=== PATIENT | female | born 1965 | race Caucasian/White ===

== ENCOUNTER 2019-05-08 05:23 | Day surgery (SDC) | payer BC, OTHER ==
[~2019-05-08] VITALS: Ht 154.9 cm; Wt 56.7 kg
--- NOTE | ~2019-05-08 | O ---
[facility] [place] [address] OPERATIVE REPORT Name: DEBORAH DIETZ Room #: 150-4 [facility].#: [id number] Admission: 05/08/19 ������������������ Attend Phys: Isidro Singh MD Discharge: ������������������ Date of : 67 Report #: [id number] THIS REPORT FOR: //name// CC: Isidro Marroquin PREOPERATIVE DIAGNOSIS: Left breast mass, 5 o'clock position. POSTOPERATIVE DIAGNOSIS: Left breast mass, probable fibrocystic condition with fibrous nodule. PROCEDURE PERFORMED: Excisional biopsy, left breast mass. ANESTHESIA: IV sedation, local 0.25% Marcaine. SURGEON: Isidro Singh M.D. COMPLICATIONS: None. ESTIMATED BLOOD LOSS: 2 mL. PROCEDURE NOTE: With the patient under IV sedation, left breast was prepped and draped in sterile fashion. Timeout was performed. A site of the lump was marked. A 0.25% Marcaine was used to anesthetize the skin over the mass. A curvilinear incision about 2.5 cm was made over the mass. After incising through skin and subcutaneous tissue, the fibrous portion of the breast tissue was identified. This was the palpable area. This was dissected free without difficulty. The breast tissue laterally was dissected more into the substance of the breast and the lump was then accomplished. Once the mass was removed, it felt less mass like. I think the breast tissue tend to kind of folded on itself, which made this palpable. There is a thickened area, cephalad and lateral to it, has a similar feeling, and has a less mass-like feeling, but similar. This was not removed. Exam through the cavity does not reveal any other suspicious mass. The palpable mass is definitely removed in its entirety. The cavity was irrigated. Hemostasis obtained with cautery. Subcutaneous tissue was brought together with 4-0 PDS. Skin was closed with 5-0 PDS. Dermabond and Telfa was used for dressing. The patient has allergies to ADHESIVE. None was used. The patient was awakened and taken to recovery room. ��������������������������������������������� ���������������������������������������� By: ��������������������������������������������� 0939 0950 Isidro Singh MD /nt
[~2019-05-08 05:23] MED LIST: ASMANEX HFA13 GM INH; CALCIUM 500 +1 EAC5 PO; CENTRUM SILVER1 EAC4 PO; FISH OIL 1,001000 M2 PO; FOSAMAX 70 MG T70 MG PO
[2019-05-08 09:07] VITALS: BP 98/50
[2019-05-08] MEDS ORDERED: NORCO 5-325 TA1 EAC1 PO (09:28)
--- NOTE | 2019-05-08 09:36 | H ---
[facility] [place] [address] HISTORY AND PHYSICAL Name: DEBORAH DIETZ Room #: 150-4 [facility]#: [id number] Admission: 05/08/19 ������������������ Attend Phys: Isidro Singh MD Discharge: ������������������ Date of : 67 Report #: [id number] THIS REPORT FOR: //name// CC: Isidro Parsons MD DATE OF SERVICE: 05/08/2019 PREOPERATIVE DIAGNOSIS: Left breast mass at 5 o'clock. HISTORY OF PRESENT ILLNESS: The patient is a 54-year-old who, on her physical exam, was noted by Dr. Parsons to have a mass in the left breast recently. This was on her regular annual exam. The patient does do breast exams, but not regularly. The patient did have a mammogram and there was no abnormality seen on the mammogram, but she did have very dense breasts. The patient's prior mammogram was dated 2014. The patient does have family history of breast cancer in her mother. Apparently, the patient's mom may have had two lumpectomies that were cancerous. No radiation, no chemotherapy as far as she knows. Mother was in her 60s. Mom may have had cancer also. The patient denies any breast pain, skin changes of the breast or discharge. She is not on any hormone. The patient was seen in the office. Ultrasound did not reveal any distinct mass there. Because of the palpable nature and her family history, we felt that it would be best to go ahead and remove this. The patient is brought in for excisional biopsy of the left breast mass. The patient denies any illness. No heart disease, lung disease or diabetes. No high blood pressure. No kidney or liver disease. No bleeding disorder. No history of blood clot. She does have a history of low thyroid. MEDICATIONS: Levothyroxine 0.1 mg daily. ALLERGIES: She is not allergic to anything. PAST SURGICAL HISTORY: Gallbladder surgery in 2015. FAMILY HISTORY: Mother had breast and cancer. Maternal side has diabetes. Lung cancer in maternal grandfather. 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 She does not smoke, does not drink. REVIEW OF SYSTEMS: She has some asthma issues from allergy. No chest pain or shortness of breath. No numbness or weakness. No headache or blurred vision. No chest pain. No GI symptoms. PHYSICAL EXAMINATION: [facility] [address] [place] [address] HISTORY AND PHYSICAL Name: DEBORAH DIETZ Room #: 150-4 [facility]#: [id number] Admission: 05/08/19 ������������������ Attend Phys: Isidro Singh MD Discharge: ������������������ Date of : 67 Report #: [id number] GENERAL: The patient is a well-nourished female, in no acute distress. HEENT: Pupils react to light. Extraocular muscles are intact. Oropharynx is clear. NECK: Soft and supple. No masses. LUNGS: Clear to auscultation. HEART: Regular rate and rhythm. No murmur or gallop. BREAST EXAMINATION: She does have a well-circumscribed nodule on the left breast, measuring about 2.5 cm transversely in dimension and then about a centimeter half craniocaudal dimension. No skin changes. No nipple changes. No axillary adenopathy. No supraclavicular adenopathy. No distinct mass detected on the right side. ABDOMEN: Soft, nondistended and nontender. No mass, guarding, rigidity or rebound. EXTREMITIES: No cyanosis or edema. IMPRESSION AND PLAN: The patient is a 54-year-old with a lump in her left breast. She does have very dense breasts on mammogram. Her mammogram was reviewed. No abnormalities seen on the mammogram. I also did not see any abnormality on her ultrasound. The patient's palpable lesion is probably fibrocystic, but with her family history, she is at risk and biopsy is recommended. The patient understands the nature of the procedure and the indications. Risk of bleeding or infection was discussed. The patient is brought in for excisional biopsy of the left breast mass. ��������������������������������������������� <ELECTRONICALLY SIGNED> ���������������������������������������� By: Isidro Singh MD ��������������������������������������������� 05/08/19 0936 [id number] Isidro Singh MD /nt
[2019-05-08 09:47] VITALS: BP 98/50
--- NOTE | 2019-05-12 15:06 | PATH ---
[facility] [address] [place] [address] PATHOLOGY RPT PROCEDURE Name: J LUISMILE Room #: DEP [facility] M.R.#: [id number] ������������������ Admission: 05/08/19 ������������������ Date of : 67 Discharge: 05/08/19 Report #: [id number] Path Case #: [id number] [facility] Accession Number: [id number] . 01 Material submitted: . breast - LEFT BREAST MASS. Modifiers: left . 01 Clinical history: . Left breast mass . 02 Diagnosis: Breast, left breast mass, excision: - Benign breast tissue associated with proliferative fibrocystic changes showing stromal fibrosis, focal columnar cell change, apocrine metaplasia, a 1.5 cm fibroadenoma as well as usual ductal hyperplasia. - Coarse calcifications identified focally in association with benign breast ducts. - Negative for atypia or malignancy. . (IUV:mml; 05/12/2019) QLM/05/12/2019 . 02 Electronically signed: . Mindi Dowling MD, Pathologist NPI- [id number] . 01 Gross description: . The specimen is received in formalin, labeled "Mile Barnett, left breast mass", is an unoriented fibroadipose tissue weighing 8 g and measuring 4.0 x 3.2 x 0.8 cm. The specimen is inked black, serially sectioned to show a predominantly coreas-white fibrous cut surface. The specimen is entirely submitted in (contiguous sections) A1-A9. Specimen excised at: 0915 on 05/08/19, placed in formalin at: 0917 on 05/08/19, formalin exposure: Approximately 14 hours and 13 minutes. (SWS; 05/08/2019) SHS/SHS . 02 Pathologist provided ICD-10: N60.12, N60.32, D24.2, N62 . 02 CPT . 937465 Specimen Comment: A courtesy copy of this report has been sent to Specimen Comment: [phone], . Specimen Comment: Report sent to and Performed at: 01 [place] [address] PATHOLOGY RPT PROCEDURE Name: MILE BARNETT Room #: DEP [facility] M.Matt.#: [id number] ������������������ Admission: 05/08/19 ������������������ Date of : 67 Discharge: 05/08/19 Report #: [id number] Path Case #: [id number] [address], [place] [id number] MD Timothy Santiago MD Phone: [phone] Performed at: [address] [id number] MD Mindi Dowling MD Phone: [phone]
== END 2019-05-08 10:50 | disposition home or self-care (01) ==
LOC: OR 05:23 → TBA 05:24 → OR 10:37
DX: D24.2 Benign neoplasm of left breast (principal); N60.32 Fibrosclerosis of left breast; N60.92 Unspecified benign mammary dysplasia of left breast; N60.82 Other benign mammary dysplasias of left breast; R92.1 Mammographic calcification found on diagnostic imaging of breast; J45.909 Unspecified asthma, uncomplicated; Z90.49 Acquired absence of other specified parts of digestive tract; Z83.3 Family history of diabetes mellitus; Z80.3 Family history of malignant neoplasm of breast; Z80.1 Family history of malignant neoplasm of trachea, bronchus and lung; Z98.890 Other specified postprocedural states; Z79.899 Other long term (current) drug therapy
CPT/HCPCS: 50010; 50101; 50386; 50417; 54118; 56525; 56526; 62110; 62850; 70005

== ENCOUNTER → 2020-09-09 | Outpatient (CLI) | payer OTHER ==
[~2020-09-09] MED LIST changes: +NORCO 5-325 TA1 EAC1 PO
== END ==
LOC: CAT 13:46
PROVIDERS: ATTEND Neuromusculoskeletal Medicine & OMM
DX: Z13.6 Encounter for screening for cardiovascular disorders (principal); I25.10 Atherosclerotic heart disease of native coronary artery without angina pectoris; E78.00 Pure hypercholesterolemia, unspecified